=== PATIENT | female | born 1970 | race Caucasian/White ===

== ENCOUNTER → 2017-12-12 | Outpatient (REF) | payer OTHER ==
[2017-12-18 09:18] LABS: HPV HYBRID CAPTURE II Negative (Negative)
== END ==
LOC: M LAB REF 13:37
DX: Z12.4 Encounter for screening for malignant neoplasm of cervix (principal)

== ENCOUNTER → 2018-01-08 | Outpatient (REF) | payer OTHER ==
[2018-01-08 14:22] LABS: APPEARANCE, URINE CLEAR (CLEAR); BACTERIA, URINE AUTO NEGATIVE (NEGATIVE); BILIRUBIN, URINE AUTO NEGATIVE (NEGATIVE); BLOOD, URINE BLOOD NEGATIVE (NEGATIVE); COLOR, URINE AMBER (YELLOW); GLUCOSE, URINE (UA) AUTO NEGATIVE (NEGATIVE); KETONE, URINE AUTO NEGATIVE (NEGATIVE); LEUKOCYTE ESTERASE, URINE AUTO NEGATIVE (NEGATIVE); NITRITE, URINE AUTO POSITIVE (NEGATIVE); PROTEIN, URINE AUTO NEGATIVE (NEGATIVE); RBC, URINE AUTO 5 /HPF (0-3); SPECIFIC GRAVITY URINE AUTO 1.015 (1.002-1.035); SQUAMOUS EPITHELIAL CELL UR AU 2 /HPF (0-6); WBC, URINE AUTO 8 /HPF (0-3)
== END ==
LOC: M LAB REF 13:54
DX: N39.0 Urinary tract infection, site not specified (principal)

== ENCOUNTER → 2018-03-18 | Outpatient (REF) | payer OTHER ==
[2018-03-18 18:54] LABS: APPEARANCE, URINE HAZY (CLEAR); BACTERIA, URINE AUTO 2+ (NEGATIVE); BILIRUBIN, URINE AUTO NEGATIVE (NEGATIVE); BLOOD, URINE BLOOD NEGATIVE (NEGATIVE); COLOR, URINE YELLOW (YELLOW); GLUCOSE, URINE (UA) AUTO NEGATIVE (NEGATIVE); KETONE, URINE AUTO NEGATIVE (NEGATIVE); LEUKOCYTE ESTERASE, URINE AUTO TRACE (NEGATIVE); MUCUS, URINE SMALL (NEGATIVE); NITRITE, URINE AUTO NEGATIVE (NEGATIVE); PROTEIN, URINE AUTO NEGATIVE (NEGATIVE); RBC, URINE AUTO 7 /HPF (0-3); SPECIFIC GRAVITY URINE AUTO 1.017 (1.002-1.035); SQUAMOUS EPITHELIAL CELL UR AU 1 /HPF (0-6); UROBILINOGEN, URINE AUTO 0.2 mg/dL (0.0-2.0); WBC, URINE AUTO 34 /HPF (0-3)
== END ==
LOC: M LAB REF 17:06
DX: N39.0 Urinary tract infection, site not specified (principal)

== ENCOUNTER → 2018-04-02 | Outpatient (REF) | payer OTHER ==
[2018-04-02 15:43] LABS: APPEARANCE, URINE HAZY (CLEAR); BACTERIA, URINE AUTO 1+ (NEGATIVE); BILIRUBIN, URINE AUTO NEGATIVE (NEGATIVE); BLOOD, URINE BLOOD 1+ (NEGATIVE); COLOR, URINE YELLOW (YELLOW); GLUCOSE, URINE (UA) AUTO NEGATIVE (NEGATIVE); KETONE, URINE AUTO NEGATIVE (NEGATIVE); LEUKOCYTE ESTERASE, URINE AUTO 1+ (NEGATIVE); NITRITE, URINE AUTO NEGATIVE (NEGATIVE); PROTEIN, URINE AUTO NEGATIVE (NEGATIVE); RBC, URINE AUTO 3 /HPF (0-3); SPECIFIC GRAVITY URINE AUTO 1.012 (1.002-1.035); SQUAMOUS EPITHELIAL CELL UR AU 0 /HPF (0-6); UROBILINOGEN, URINE AUTO 0.2 mg/dL (0.0-2.0); WBC, URINE AUTO 39 /HPF (0-3)
== END ==
LOC: M LAB REF 14:29
DX: N39.0 Urinary tract infection, site not specified (principal)
CPT/HCPCS: 81001

== ENCOUNTER → 2018-06-09 | Outpatient (REF) | payer OTHER ==
[2018-06-09 21:56] LABS: AMORPHOUS SEDIMENT MODERATE (NEGATIVE); APPEARANCE, URINE CLOUDY (CLEAR); BACTERIA, URINE AUTO 1+ (NEGATIVE); BILIRUBIN, URINE AUTO NEGATIVE (NEGATIVE); BLOOD, URINE BLOOD NEGATIVE (NEGATIVE); COLOR, URINE AMBER (YELLOW); GLUCOSE, URINE (UA) AUTO NEGATIVE (NEGATIVE); KETONE, URINE AUTO NEGATIVE (NEGATIVE); LEUKOCYTE ESTERASE, URINE AUTO NEGATIVE (NEGATIVE); NITRITE, URINE AUTO POSITIVE (NEGATIVE); PROTEIN, URINE AUTO NEGATIVE (NEGATIVE); RBC, URINE AUTO 4 /HPF (0-3); SPECIFIC GRAVITY URINE AUTO 1.016 (1.002-1.035); SQUAMOUS EPITHELIAL CELL UR AU 1 /HPF (0-6); WBC, URINE AUTO 11 /HPF (0-3)
== END ==
LOC: M LAB REF 12:02
PROVIDERS: ATTEND Physician Assistant Medical
DX: N39.0 Urinary tract infection, site not specified (principal)

== ENCOUNTER → 2018-08-12 | Outpatient (REF) | payer OTHER | LOC: M LAB REF 17:01 | PROVIDERS: ATTEND Family Medicine | DX: R30.0 Dysuria (principal) ==

== ENCOUNTER → 2018-12-22 | Outpatient (REF) | payer OTHER ==
[~2018-12-22] MED LIST: CLON0.5T8 PO; DIVA500T94 PO
[2018-12-22 17:59] LABS: APPEARANCE, URINE HAZY (CLEAR); BACTERIA, URINE AUTO NEGATIVE (NEGATIVE); BILIRUBIN, URINE AUTO NEGATIVE (NEGATIVE); BLOOD, URINE BLOOD NEGATIVE (NEGATIVE); COLOR, URINE YELLOW (YELLOW); GLUCOSE, URINE (UA) AUTO NEGATIVE (NEGATIVE); KETONE, URINE AUTO NEGATIVE (NEGATIVE); LEUKOCYTE ESTERASE, URINE AUTO NEGATIVE (NEGATIVE); NITRITE, URINE AUTO NEGATIVE (NEGATIVE); PROTEIN, URINE AUTO NEGATIVE (NEGATIVE); RBC, URINE AUTO 0 /HPF (0-3); SPECIFIC GRAVITY URINE AUTO 1.005 (1.002-1.035); SQUAMOUS EPITHELIAL CELL UR AU 3 /HPF (0-6); UROBILINOGEN, URINE AUTO 0.2 mg/dL (0.0-2.0); WBC, URINE AUTO 1 /HPF (0-3)
== END ==
LOC: M LAB REF 16:24
PROVIDERS: ATTEND Physician Assistant Medical
DX: N39.0 Urinary tract infection, site not specified (principal)

== ENCOUNTER 2019-01-06 09:22 | Day surgery (SDC) | payer OTHER ==
[~2019-01-06] VITALS: Ht 167.6 cm; Wt 70.3 kg
[~2019-01-06 09:22] MED LIST changes: +LIDOCAINE 2% INJ 100 MG/5 ML SDV (FOR ANES.) As Ordered ONE; +NS 1,000 ML IV ONE; +PROPOFOL 200 MG/20 ML VIAL As Ordered ONE
--- NOTE | 2019-01-06 10:46 | ROOR ---
Patient Name: Kirstin Ruby Procedure Date: 01/06/2019 10:04 AM Date of : 1970 Age: 48 Room: [facility] Gender: Female Note Status: Finalized Procedure: Upper GI endoscopy Indications: Follow-up of esophageal reflux Providers: Anthony Carrera MD Referring MD: Anabel WILSON DO Requesting Provider: Medicines: Monitored Anesthesia Care Complications: No immediate complications. Procedure: Pre-Anesthesia Assessment: - Prior to the procedure, a History and Physical was performed, and patient medications and allergies were reviewed. The patient is competent. The risks and benefits of the procedure and the sedation options and risks were discussed with the patient. All questions were answered and informed consent was obtained. Patient identification and proposed procedure were verified by the physician, the nurse and the anesthesiologist in the procedure room. Mental Status Examination: alert and oriented. Airway Examination: normal oropharyngeal airway and neck mobility. CV Examination: regular rate and rhythm. Prophylactic Antibiotics: The patient does not require prophylactic antibiotics. Prior Anticoagulants: The patient has taken no previous anticoagulant or antiplatelet agents. ASA Grade Assessment: II - A patient with mild systemic disease. After reviewing the risks and benefits, the patient was deemed in satisfactory condition to undergo the procedure. The anesthesia plan was to use monitored anesthesia care (MAC). Immediately prior to administration of medications, the patient was re-assessed for adequacy to receive sedatives. The heart rate, respiratory rate, oxygen saturations, blood pressure, adequacy of pulmonary ventilation, and response to care were monitored throughout the procedure. The physical status of the patient was re-assessed after the procedure. The Endoscope was introduced through the mouth, and advanced to the third part of duodenum. The upper GI endoscopy was accomplished without difficulty. The patient tolerated the procedure well. Findings: The examined esophagus was normal. The Z-line was regular. The entire examined stomach was normal. The duodenal bulb, first portion of the duodenum and second portion of the duodenum were normal. Impression: - Normal esophagus. - Z-line regular. - Normal stomach. - Normal duodenal bulb, first portion of the duodenum and second portion of the duodenum. - No specimens collected. Recommendation: - Discharge patient to home. - Resume previous diet. - Continue present medications. Anthony Carrera MD Anthony Carrera MD 01/06/2019 10:46:11 AM Electronically signed by Anthony Carrera MD Number of Addenda: 0 Note Initiated On: 01/06/2019 10:04 AM Estimated Blood Loss: Estimated blood loss: none.
--- NOTE | 2019-01-06 10:52 | ROOR ---
Patient Name: Kirstin Ruby Procedure Date: 01/06/2019 10:05 AM Date of : 1970 Age: 48 Room: [facility] Gender: Female Note Status: Finalized Procedure: Colonoscopy Indications: Last colonoscopy 10 years ago, Rectal bleeding, Constipation Providers: Anthony Carrera MD Referring MD: Anabel WILSON DO Requesting Provider: Medicines: Monitored Anesthesia Care Complications: No immediate complications. Procedure: Pre-Anesthesia Assessment: - Prior to the procedure, a History and Physical was performed, and patient medications and allergies were reviewed. The patient is competent. The risks and benefits of the procedure and the sedation options and risks were discussed with the patient. All questions were answered and informed consent was obtained. Patient identification and proposed procedure were verified by the physician, the nurse and the anesthesiologist in the procedure room. Mental Status Examination: alert and oriented. Airway Examination: normal oropharyngeal airway and neck mobility. CV Examination: regular rate and rhythm. Prophylactic Antibiotics: The patient does not require prophylactic antibiotics. Prior Anticoagulants: The patient has taken no previous anticoagulant or antiplatelet agents. ASA Grade Assessment: II - A patient with mild systemic disease. After reviewing the risks and benefits, the patient was deemed in satisfactory condition to undergo the procedure. The anesthesia plan was to use monitored anesthesia care (MAC). Immediately prior to administration of medications, the patient was re-assessed for adequacy to receive sedatives. The heart rate, respiratory rate, oxygen saturations, blood pressure, adequacy of pulmonary ventilation, and response to care were monitored throughout the procedure. The physical status of the patient was re-assessed after the procedure. The Colonoscope was introduced through the anus and advanced to the cecum, identified by the appendiceal orifice. The colonoscopy was performed without difficulty. The patient tolerated the procedure well. The quality of the bowel preparation was excellent. Findings: The perianal and digital rectal examinations were normal. A 7 mm polyp was found in the hepatic flexure. The polyp was sessile. The polyp was removed with a hot snare. Resection and retrieval were complete. Estimated blood loss: none. The exam was otherwise without abnormality. Impression: - One 7 mm polyp at the hepatic flexure, removed with a hot snare. Resected and retrieved. - The examination was otherwise normal. Recommendation: - Discharge patient to home. - Resume previous diet. - Continue present medications. - Await pathology results. - Return to endoscopist as previously scheduled. Anthony Carrera MD Anthony Carrera MD 01/06/2019 10:51:55 AM Electronically signed by Anthony Carrera MD Number of Addenda: 0 Note Initiated On: 01/06/2019 10:05 AM Estimated Blood Loss: Estimated blood loss: none.
[2019-01-06 11:20] VITALS: BP 134/72
== END 2019-01-06 11:30 | disposition home or self-care (01) ==
LOC: M OPP 09:22
PROVIDERS: ATTEND Surgery
DX: D12.3 Benign neoplasm of transverse colon (principal); K62.5 Hemorrhage of anus and rectum; K59.00 Constipation, unspecified; K21.9 Gastro-esophageal reflux disease without esophagitis; Z88.2 Allergy status to sulfonamides; Z79.899 Other long term (current) drug therapy; F17.210 Nicotine dependence, cigarettes, uncomplicated

== ENCOUNTER → 2023-06-12 | Outpatient (CLI) | payer OTHER ==
[~2023-06-12] MED LIST changes: +CLON0.5T2 PO; -CLON0.5T8 PO; -LIDOCAINE 2% INJ 100 MG/5 ML SDV (FOR ANES.) As Ordered ONE; -NS 1,000 ML IV ONE; -PROPOFOL 200 MG/20 ML VIAL As Ordered ONE
== END ==
LOC: M RAD 08:32
PROVIDERS: ATTEND Family Medicine
DX: Z87.891 Personal history of nicotine dependence (principal)

== ENCOUNTER 2023-10-31 14:14 | Inpatient (IN) | payer OTHER ==
[~2023-10-31] VITALS: Ht 167.6 cm; Wt 66.0 kg
[2023-10-31] MEDS ORDERED: ARIP1TAB6 PO (14:39)
[2023-10-31 15:17] LABS: BASO % 0.4 % (0.0-1.0); EOS # 0.1 10^3/uL (0.0-0.5); EOS % 1.6 % (0.0-3.0); HEMATOCRIT 44.9 % (36.0-47.0); HEMOGLOBIN 15.7 g/dl (12.0-15.5); LYMPH # 2.7 10^3/uL (1.5-5.0); LYMPH % 32.8 % (24.0-44.0); MEAN CORPUSCULAR HEMOGLOBIN 33.1 pg (27.0-33.0); MEAN CORPUSCULAR VOLUME 94.7 fl (80.0-96.0); MONO # 0.7 10^3/uL (0.0-0.8); MONO % 8.1 % (2.0-8.0); NEUTROPHILS # 4.6 10^3/uL (1.5-8.5); NEUTROPHILS % 56.9 % (36.0-66.0); PLATELET COUNT, AUTOMATED 266 10^3/uL (150-450); RED BLOOD COUNT 4.74 10^6/uL (4.00-5.40); WHITE BLOOD COUNT 8.1 10^3/uL (4.0-10.0)
[2023-10-31 15:35] LABS: ETHYL ALCOHOL (ETHANOL) < 0.003 % (0.000-0.010)
[2023-10-31 15:37] LABS: ALBUMIN 4.4 G/DL (3.2-5.2); ALKALINE PHOSPHATASE 80 U/L (46-116); ALT/SGPT 22 U/L (7.0-40); AST/SGOT 25 U/L (<34); BILIRUBIN,DIRECT 0.7 MG/DL (<0.4); BILIRUBIN,TOTAL 2.4 MG/DL (0.3-1.2); BLOOD UREA NITROGEN 12 MG/DL (9-23); CALCIUM LEVEL 9.9 MG/DL (8.5-10.1); CARBON DIOXIDE LEVEL 28 MMOL/L (20-31); CHLORIDE LEVEL 98 MMOL/L (98-107); CREATININE FOR GFR 0.73 MG/DL (0.55-1.30); GLOMERULAR FILTRATION RATE > 60.0 (>51); GLUCOSE, FASTING 86 MG/DL (60-100); POTASSIUM SERUM 4.1 MMOL/L (3.5-5.1); SALICYLATE LEVEL < 3.0 MG/DL (<30); SODIUM LEVEL 134 MMOL/L (136-145); TOTAL PROTEIN 7.2 G/DL (5.7-8.2)
[2023-10-31 15:40] LABS: THYROID STIMULATING HORMONE 1.568 uIU/ML (0.55-4.78)
[2023-10-31 15:50] LABS: CPK CREATINE PHOSPHOKINASE 324 U/L (34-145)
[2023-10-31 16:00] LABS: OSMOLALITY SERUM 278 MOSM/KG (275-295)
[2023-10-31 17:30] LABS: AMPHETAMINES LEVEL URINE NEGATIVE (NEGATIVE); BARBITURATES URINE NEGATIVE (NEGATIVE); CANNABINOIDS URINE NEGATIVE (NEGATIVE); COCAINE METABOLITE URINE NEGATIVE (NEGATIVE); METHADONE URINE NEGATIVE (NEGATIVE); OPIATES URINE NEGATIVE (NEGATIVE); PHENCYCLIDINE URINE NEGATIVE (NEGATIVE)
[2023-10-31 17:32] LABS: BENZODIAZEPINES URINE POSITIVE (NEGATIVE)
[2023-10-31] MEDS ORDERED: CLON1TAB8 PO (19:14)
[2023-10-31] MEDS ORDERED: LAMO25TA4 PO (19:14)
[2023-10-31] MEDS ORDERED: HYDR-3363 PO (19:14)
[2023-10-31] MEDS ORDERED: DOCU100C16 PO (19:14)
[2023-10-31] MEDS ORDERED: HOME MED LIST COMPLETE! XX SCH (19:15)
[2023-11-01] MEDS ORDERED: MOM 30ML SUSPENSION UDC PO PRN (08:40)
[2023-11-01] MEDS ORDERED: MAALOX 30 ML SUSP *UDC PO PRN (08:40)
[2023-11-01] MEDS ORDERED: ACETAMINOPHEN TAB 650MG DOSE (2X325MG) PO PRN (08:40)
[2023-11-01] MEDS ORDERED: diphenhydrAMINE 25MG CAP PO PRN (08:40)
[2023-11-01] MEDS ORDERED: IBUPROFEN 400MG TAB PO PRN (08:40)
[2023-11-01 10:39] VITALS: BP 113/60; TEMP 98.3; O2SAT 96
[2023-11-01] MEDS: OLANZapine ORAL DISINTEGRATING TAB 5MG PO ONE (15:49)
[2023-11-01] MEDS: OLANZapine 5 MG TAB PO SCH (21:00)
[2023-11-02 06:40] VITALS: BP 105/54; TEMP 97.4; O2SAT 95
[2023-11-02] MEDS: FLUoxetine 10 MG CAP PO SCH (11:51)
[2023-11-02 16:57] VITALS: BP 145/81; TEMP 97.9; O2SAT 98
[2023-11-02] MEDS: OLANZapine 5 MG TAB PO SCH (21:08)
[2023-11-02] MEDS: traZODone 50 MG TAB PO PRN (21:08)
[2023-11-03 06:22] VITALS: BP 144/67; TEMP 96.8; O2SAT 99
[2023-11-03 16:22] VITALS: BP 124/69; TEMP 97.6; O2SAT 100
[2023-11-03] MEDS: OLANZapine ORAL DISINTEGRATING TAB 5MG PO PRN (18:22)
[2023-11-04 06:20] VITALS: BP 152/80; TEMP 98.6; O2SAT 96
[2023-11-04 18:41] VITALS: BP 146/76; TEMP 97
[2023-11-04] MEDS: OLANZapine 10 MG TAB PO SCH (21:03)
[2023-11-05 06:39] VITALS: BP 122/69; TEMP 97.7; O2SAT 99
[2023-11-05] MEDS: OLANZapine 10 MG TAB PO SCH (14:57)
[2023-11-05 18:57] VITALS: BP 146/78; TEMP 97.6
[2023-11-06 06:16] VITALS: BP 118/58; TEMP 97.5; O2SAT 97
[2023-11-06] MEDS: FLUoxetine 20MG CAP PO SCH (09:10)
[2023-11-06] MEDS: PILL CUTTER 1 EACH XX PRN (09:10)
[2023-11-06] MEDS: ARIPiprazole 10 MG TAB PO SCH (20:36)
[2023-11-07 06:13] VITALS: BP 136/65; TEMP 97.7; O2SAT 96
[2023-11-07 18:09] VITALS: BP 130/59; TEMP 97.9; O2SAT 98
[2023-11-08 06:48] VITALS: BP 153/82; TEMP 96.8; O2SAT 96
[2023-11-08 16:06] VITALS: BP 149/72; TEMP 98.5; O2SAT 97
[2023-11-09 06:17] VITALS: BP_SYST 142; BP_SYST 158; BP_DIAS 82; BP_DIAS 94; TEMP 98.5; O2SAT 98
[2023-11-09 16:21] VITALS: BP 126/64; TEMP 98.9; O2SAT 97
[2023-11-10 06:57] VITALS: BP 141/73; TEMP 97.8; O2SAT 95
[2023-11-10 15:49] VITALS: BP 130/77; TEMP 98.8; O2SAT 96
[2023-11-11 18:00] VITALS: BP 143/63; TEMP 97.9
[2023-11-12 06:15] VITALS: BP 123/63; TEMP 97.7; O2SAT 96
[2023-11-12] MEDS ORDERED: TRAZ-252 PO (10:40)
[2023-11-12] MEDS ORDERED: OLAN5ZYD PO (10:40)
[2023-11-12] MEDS ORDERED: OLAN15TA13 PO (10:40)
[2023-11-12] MEDS ORDERED: ABIL10TA9 PO (10:40)
[2023-11-12] MEDS ORDERED: FLUO40CA PO (10:40)
[2023-11-12] MEDS ORDERED: DIPH-435 PO (10:40)
== END 2023-11-12 11:51 | disposition home or self-care (01) | DRG 750 ==
LOC: EDBD 14:14 → M ED 14:14 → M ED INP 11-01 03:38 → M PSY 11-01 10:29
PROVIDERS: ADMIT Student in an Organized Health Care Education/Training Program; ATTEND Student in an Organized Health Care Education/Training Program
DX: F25.0 Schizoaffective disorder, bipolar type (principal); Z79.899 Other long term (current) drug therapy; Z88.2 Allergy status to sulfonamides